=== PATIENT | female | born 1990 | race Caucasian/White ===

== ENCOUNTER 2016-09-13 22:04 | Inpatient (IN) ==
[2016-09-13] MEDS ORDERED: LR 1,000 ML IV SCH ×2 (22:39→23:30)
[2016-09-13] MEDS ORDERED: CITRIC ACID/SODIUM CITRATE 30ml PO ONE (23:45)
[2016-09-13] MEDS ORDERED: CEFAZOLIN PREMIX (MC ONLY) 2 GM/50 ML BAG IV ONE (23:45)
[2016-09-13] MEDS ORDERED: FAMOTIDINE PB 20 MG/50 ML BAG IV ONE (23:45)
[2016-09-14] MEDS ORDERED: ONDANSETRON 4 MG/2 ML INJECTION ONE (00:17)
[2016-09-14] MEDS ORDERED: EPHEDRINE 50mg/ml INJECTION ONE (00:18)
[2016-09-14] MEDS ORDERED: FentaNYL 100 MCG/2 ML INJECTION ONE (00:19)
[2016-09-14] MEDS ORDERED: MORPHINE SULFATE PF 5mg/10ml INJ (Duramorph) ONE (00:19)
[2016-09-14] MEDS: OXYTOCIN DRIP 30 UNIT/500 ML ML IV SCH ×2 (00:54→02:05)
--- NOTE | 2016-09-14 01:28 | Anesthesia Preoperative Report ---
Anesthesia Preoperative Record - Date and Time Date: 09/14/16 Preoperative Diagnosis: Ob triage Proposed Procedure: emergent repeat NPO Since Date: 09/13/16 NPO Since Time: 20:00 (emergent) Allergies/Adverse Reactions: Allergies Allergy/AdvReac Type Severity Reaction Status Date / Time No Known Allergies Allergy Unverified 01/18/15 20:56 - Vital Signs Vital Signs: Temperature 98.0 F 09/13/16 22:41 Pulse Rate 80 09/13/16 22:41 Respiratory Rate 16 09/13/16 22:41 Blood Pressure 131/66 09/13/16 22:41 Oxygen Delivery Method Room Air Height and Weight: Height 5 ft 4.5 in - Medications Inpatient Medications: Current Medications Citric Acid/Sodium Citrate (Oracit) 30 ml PO PREOP ONE Stop: 09/13/16 23:46 Last Admin: 09/14/16 00:15 Dose: 30 ml Lactated Ringer's (Lactated Ringers) 1,000 mls @ 1,000 mls/hr IV .Q1H LOLIS Stop: 09/13/16 23:38 Last Infusion: 09/13/16 23:25 Dose: Infused Lactated Ringer's (Lactated Ringers) 1,000 mls @ 200 mls/hr IV .Q5H LOLIS Last Admin: 09/13/16 23:25 Dose: 200 mls/hr Famotidine/Sodium Chloride (Pepcid Premix) 20 mg in 50 mls @ 100 mls/hr IV PREOP ONE Stop: 09/14/16 00:14 Last Infusion: 09/14/16 00:17 Dose: Infused Cefazolin Sodium/Dextrose (Kefzol Premix ( Only)) 2 gm in 50 mls @ 100 mls/ hr IV PREOP ONE Stop: 09/14/16 00:14 Last Admin: 09/14/16 00:17 Dose: 100 mls/hr Home Medications: Home Medications Medication Instructions Recorded Confirmed Type IUD CONTROL #0 01/18/15 History Is Patient on Beta Avery?: No - Medical History Respiratory: DENIES: Asthma, Other Cardiovascular: DENIES: Heart Murmur, Hypertension Neuro/Musculoskeletal: Denies: Back Problems Renal/Endocrine: DENIES: Diabetes Mellitus Type 2 Other History: DENIES: Anesthesia Reactions - Surgical History Reproductive Surgery/Treatment: Reports: Section (x2) Anesthesia Reactions: None Hx Family Anesthesia Reaction: No History of Motion Sickness: No - Social History Smoking Status: Never smoker Hx Chewing Tobacco Use: No Second Hand Exposure: No Substance Use Type: does not use - Pertinent Findings Laboratory: CBC and BMP 09/13/16 22:32 Urine 09/13/16 Range/Units 22:20 Urine Color Yellow (YELLOW) Urine Clarity Cloudy Urine pH 7.5 (5.0-8.0) Ur Specific [place] 1.015 (1.015-1.025) Urine Protein Negative (NEGATIVE) Urine Glucose (UA) Negative (NEGATIVE) - Physical Exam Respiratory Exam: Present: lungs clear Cardiovascular Exam: Present: regular rate and rhythm - Airway Assessment Mallampati Score: I TMD: 3 Fingerbreadths Neck Extension: good Overall Assessment: may be difficult mask vent, may be difficult intubation - ASA ASA Score: 3, E - Plan Anesthesia: MAC Regional/Trunk Block: Spinal - Discussion Discussion: Discussed risks/options/alternatives of anesthesia and questions answered. Patient consents. Nursing pain assessment noted. Present for Discussion: spouse (pt yoruba speaking only - translates) Attestation Statement: Prior to the delivery of any anesthetic medication, I examined the patient, developed the plan, obtained the patient's consent and discussed the risk and benefits of the procedure with the patient/guardian. - Additional Information Seen by Anesthesia: Yes
[2016-09-14] MEDS ORDERED: NALOXONE 2 MG/2 ML INJECTION PFS IVP PRN (01:29)
[2016-09-14] MEDS ORDERED: ONDANSETRON 4 MG/2 ML INJECTION IVP PRN (01:29)
[2016-09-14] MEDS ORDERED: DiphenhydrAMINE 50 MG/ML INJECTION ONE (01:38)
[2016-09-14] MEDS ORDERED: CALCIUM CARBONATE Chewable 500mg TABLET PO PRN (02:48)
[2016-09-14] MEDS ORDERED: SALINE FLUSH 10ml SYRINGE IVF PRN (02:48)
[2016-09-14] MEDS ORDERED: OXYTOCIN DRIP 30 UNIT/500 ML ML IV SCH (02:48)
[2016-09-14] MEDS ORDERED: ACETAMINOPHEN 500 MG TABLET PO PRN (02:48)
[2016-09-14] MEDS ORDERED: DiphenhydrAMINE 25 MG CAPSULE PO PRN (02:48)
[2016-09-14] MEDS ORDERED: HYDROCORTISONE 2.5% CREAM 30gm RECTALLY PRN (02:48)
[2016-09-14] MEDS ORDERED: METOCLOPRAMIDE 10mg/2ml INJECTION IVP PRN (02:48)
[2016-09-14] MEDS: D5LR 1,000 ML IV SCH ×2 (02:50→14:24)
[2016-09-14] MEDS: HYDROCODONE/APAP 5mg/325mg TABLET PO PRN ×3 (03:27→15:41)
--- NOTE | 2016-09-14 08:19 | OB/GYN Progress Note ---
OB-PP Progress Note - General POD:: POD1 - Subjective Date: 09/14/16 Lochia: Moderate Pain: contolled (Reports pain at her incision site. Relieved with pain med.) Voiding: tucker still in place (lashawn colored urine) Nausea or Vomiting Present: No - Objective Vital Signs: Last Vital Signs Temp 98.2 F 09/14/16 04:45 Pulse 68 09/14/16 04:45 Resp 16 09/14/16 04:45 BP 95/61 09/14/16 04:45 Pulse Ox 93 09/14/16 04:45 Urine Output: good General: alert and oriented Abdomen: fundus firm Incision: dressed Extremities: non-tender Edema: none Laboratory: Laboratory Results - last 24 hr 09/13/16 09/13/16 09/13/16 22:20 22:32 22:32 WBC 8.5 RBC 4.60 Hgb 12.1 Hct 37.3 MCV 81.1 MCH 26.3 MCHC 32.4 RDW Std Deviation 36.1 L Plt Count 284 MPV 9.4 Immature Gran % (Auto) 0.4 Neut % (Auto) 68.7 H Lymph % (Auto) 19.5 L [place] % (Auto) 9.0 Eos % (Auto) 2.0 Baso % (Auto) 0.4 Neut # 5.8 Lymph # 1.7 [place] # 0.8 Eos # 0.2 Baso # 0.0 Abs Immat Gran (auto) 0.03 Ur Collection Type Urine, clean catch Urine Color Yellow Urine Clarity Cloudy Urine pH 7.5 Ur Specific [place] 1.015 Urine Protein Negative Urine Glucose (UA) Negative Urine Ketones Trace A Urine Occult Blood Negative Urine Nitrate Negative Urine Bilirubin Negative Urine Urobilinogen 0.2 Ur Leukocyte Esterase 3+ A Urine RBC 1-3 Urine WBC 10-20 H Ur Squamous Epith Cells >50 Amorphous Sediment Many Urine Bacteria 3+ H Ur Culture Indicated? Cult reflexed &setup Blood Type B Positive Antibody Screen Negative 09/14/16 07:42 WBC 12.7 H D RBC 4.33 Hgb 11.6 L Hct 35.0 L MCV 80.8 MCH 26.8 MCHC 33.1 RDW Std Deviation 35.7 L Plt Count 263 MPV 9.3 L Immature Gran % (Auto) Neut % (Auto) Lymph % (Auto) [place] % (Auto) Eos % (Auto) Baso % (Auto) Neut # Lymph # [place] # Eos # Baso # Abs Immat Gran (auto) Ur Collection Type Urine Color Urine Clarity Urine pH Ur Specific [place] Urine Protein Urine Glucose (UA) Urine Ketones Urine Occult Blood Urine Nitrate Urine Bilirubin Urine Urobilinogen Ur Leukocyte Esterase Urine RBC Urine WBC Ur Squamous Epith Cells Amorphous Sediment Urine Bacteria Ur Culture Indicated? Blood Type Antibody Screen - Assessment Assessment: Repeat C/S - Plan Plan: routine care
[2016-09-14] MEDS: IBUPROFEN 800 MG TABLET PO PRN ×2 (08:21→21:27)
[2016-09-14] MEDS: DOCUSATE CALCIUM 240 MG CAPSULE PO SCH (08:22)
--- NOTE | 2016-09-14 10:32 | Anesthesia Postoperative Note ---
- Date and Time Date: 09/14/16 Time: 10:31 - Status Patient Participated in Evaluation: Patient Participated in Person Vital Signs: Temperature 98.1 F 09/14/16 09:00 Pulse Rate 62 09/14/16 09:00 Respiratory Rate 14 09/14/16 09:00 Blood Pressure 99/55 09/14/16 09:00 Pulse Oximetry 98 09/14/16 09:00 Oxygen Delivery Method Room Air Respiratory Function: Airway Patent, Regular Respirations Cardiovascular Function: Regular Pulse Mental Status: Alert and Oriented Pain Intensity: 3 Hydration: Taking PO Fluids, Nausea (after meal) Complications During Recover: None Apparent - Follow-Up Instructions Instructions: Per Surgeon
[2016-09-14] MEDS: SIMETHICONE 80 MG CHEWABLE TABLET PO SCH ×3 (10:48→21:27)
--- NOTE | 2016-09-14 13:10 | Operative Note ---
DATE OF OPERATION: 09/14/2016 PREOPERATIVE DIAGNOSIS 1. 25-year-old female, G3, P2 at 37.3 weeks gestational age. 2. Spontaneous labor. 3. Previous x2. POSTOPERATIVE DIAGNOSIS 1. Nuchal cord x1. 2. Male , Apgars, 3026 grams (6 pounds 11 ounces). ANESTHESIA: Spinal. SURGEON: Jim Pepe MD BIOTECHNICIAN: Nora Cerda MD PROCEDURE: Repeat low transverse section. EBL: 800 mL COMPLICATIONS: Unassigned patient from [facility] with two previous C- sections presented in spontaneous labor also with a UTI. She had a midline skin incision. DESCRIPTION OF PROCEDURE After adequate spinal anesthesia, the patient was prepped and draped in the left lateral decubitus position. She had a previous midline scar, so I excised the old scar with a sharp knife and discarded it. I carried it down to the fascia and then incised the fascia superiorly and inferiorly until I could identify the peritoneum and then I opened it up sharply with Metzenbaum scissors and extended it cephalad and caudad. Bladder blade was inserted and there were some adhesions from the bladder to the uterus and these were taken down. Then I made a transverse incision in the lower uterine segment above the old scar and amniotic fluid was clear. Infant was delivered from a vertex position. There was a nuchal cord x1 that was reduced. The infant was bulb suctioned after delivery of head and then again after delivery of the body. Cord was doubly clamped and cut. The was received by Dr. Petar Newman of pediatrics. Placenta was removed manually and was intact. Uterus was externalized and cleansed with moist lap sponges and then closed using 0 Monocryl in a running locking fashion. 3-0 chromic was used on the right corner to complete hemostasis. Then the posterior cul-de-sac was cleansed and the uterus was returned to the abdominal cavity and peritoneum was closed using 2-0 Vicryl in a running nonlocking fashion. Fascia was closed using 0 PDS looped suture starting at the superior aspect and taking it down to the inferior aspect of the fascial defect. Then it was tied off. Then 3-0 Vicryl was used to bring the edges of the midline together and then 4-0 undyed Vicryl was used in a subcuticular manner. The patient went to recovery room in stable condition. NICOLÁSD
[2016-09-15] MEDS: SIMETHICONE 80 MG CHEWABLE TABLET PO SCH ×4 (02:51→21:21)
--- NOTE | 2016-09-15 08:20 | OB/GYN Progress Note ---
OB-Progress Note Free Text - Date Date: 09/15/16 - Progress Note Progress Note: vss af incision c/d/i tucker out no c/o per pt cont care path
[2016-09-15] MEDS: DOCUSATE CALCIUM 240 MG CAPSULE PO SCH (12:08)
[2016-09-15] MEDS: IBUPROFEN 800 MG TABLET PO PRN (17:23)
[2016-09-15] MEDS: D5LR 1,000 ML IV SCH ×3 (17:45→21:21)
[2016-09-15] MEDS: SIMETHICONE 80 MG CHEWABLE TABLET PO PRN (21:20)
[2016-09-16] MEDS: SIMETHICONE 80 MG CHEWABLE TABLET PO PRN (00:09)
[2016-09-16] MEDS: SIMETHICONE 80 MG CHEWABLE TABLET PO SCH ×2 (00:10→10:07)
[2016-09-16] MEDS: IBUPROFEN 800 MG TABLET PO PRN ×2 (02:22→10:06)
[2016-09-16 07:43] VITALS: BP 101/64; PULSE 68; RESP 16; TEMP 98; O2SAT 97
--- NOTE | 2016-09-16 08:38 | Discharge Instructions ---
Discharge Plan - Med Rec/Dispo Prescriptions: New Docusate Calcium [Surfak] 240 mg PO DAILY #30 capsule Hydrocodone/APAP 5/325 [[place] 5/325] 1 - 2 tab PO Q4H PRN #30 tablet PRN Reason: Pain Ibuprofen [Motrin] 800 mg PO Q8H PRN #40 tablet PRN Reason: Pain No Action IUD CONTROL #0 - Disposition 01 Discharged Home, Self-Care
[2016-09-16] MEDS: DOCUSATE CALCIUM 240 MG CAPSULE PO SCH (10:07)
== END 2016-09-16 12:57 | disposition home or self-care (01) | DRG 766 ==
LOC: OBOBS 22:04 → MC 22:05
PROVIDERS: ADMIT Obstetrics & Gynecology; ATTEND Obstetrics & Gynecology